=== PATIENT | male | born 1985 | race Caucasian/White ===

== ENCOUNTER 2018-07-30 11:51 | Observation (INO) | payer BC ==
[~2018-07-30 11:51] MED LIST: CEFAZOLIN 1 GM INJ; DESFLURANE 15 MIN
[2018-07-30] MEDS: LACTATED RINGER'S 1,000 ML IV (12:58)
[2018-07-30] MEDS ORDERED: MIDAZOLAM 1 MG/ML 2 ML INJ (14:29)
[2018-07-30] MEDS ORDERED: SUCCINYLCHOLINE CHLORIDE 100 MG/5 ML SYG IV (14:29)
[2018-07-30] MEDS ORDERED: PROPOFOL 20 ML ×2 (14:29→16:05)
[2018-07-30] MEDS ORDERED: FENTAnyl 50 MCG/ML VIAL (14:29)
[2018-07-30] MEDS ORDERED: LIDOCAINE 2% (SDV) 5 ML INJ (14:29)
[2018-07-30] MEDS ORDERED: ROCURONIUM 50 MG INJ (14:29)
[2018-07-30] MEDS ORDERED: DEXAMETHASONE 4 MG/ML 5 ML INJ (14:31)
[2018-07-30] MEDS ORDERED: DIPHENHYDRAMINE 50 MG INJ IV ×2 (15:00→18:00)
[2018-07-30] MEDS ORDERED: ACETAMINOPHEN 325 MG TAB PO (15:00)
[2018-07-30] MEDS ORDERED: CEPASTAT LOZENGE MT (15:00)
[2018-07-30] MEDS ORDERED: NALOXONE (0.4 MG/ML) INJ IV (15:00)
[2018-07-30] MEDS ORDERED: CYCLOBENZAPRINE 10 MG TAB PO (15:00)
[2018-07-30] MEDS ORDERED: HYDROCODONE/APAP (10/325) TAB PO (15:00)
[2018-07-30] MEDS ORDERED: AL HYDROX/MG HYDROX/SIMETH 30 ML CUP PO (15:00)
[2018-07-30] MEDS ORDERED: BISACODYL 10 MG SUPP PR (15:00)
[2018-07-30] MEDS ORDERED: DIPHENHYDRAMINE 25 MG CAP PO (15:00)
[2018-07-30] MEDS ORDERED: HYDROmorphONE 0.5 MG/0.5 ML SYG IV (15:00)
[2018-07-30] MEDS ORDERED: ONDANSETRON 4 MG INJ IV (15:00)
[2018-07-30] MEDS: CEFAZOLIN 1 GM/50 ML (PMX) 50 ML IVPB (15:45)
[2018-07-30] MEDS ORDERED: HYDROmorphONE 2 MG/ML SYG (16:07)
[2018-07-30] MEDS ORDERED: ONDANSETRON 4 MG INJ (16:08)
[2018-07-30] MEDS ORDERED: METOCLOPRAMIDE 10 MG INJ (16:08)
[2018-07-30] MEDS ORDERED: METOPROLOL 5 MG INJ (16:10)
[2018-07-30] MEDS: BUPIVACAINE 0.25%/EPI (SDV) 30 ML INJ (16:35)
[2018-07-30] MEDS: CA CHLORIDE (GM) 10% 10 ML INJ (16:36)
[2018-07-30] MEDS: SURGIFOAM POWDER 1 GM KIT (16:36)
[2018-07-30] MEDS: THROMBIN (BOVINE) 5,000 UNIT VIAL TP (16:37)
[2018-07-30] MEDS: HEPARIN 1000 UNITS/ML 10 ML INJ (16:37)
[2018-07-30] MEDS: POLYMYXIN/BACITRACIN 1L IRRIG (16:37)
[2018-07-30] MEDS ORDERED: NEOSTIGMINE 3 MG/3 ML SYRINGE (17:09)
[2018-07-30] MEDS ORDERED: GLYCOPYRROLATE 0.4 MG INJ (17:09)
[2018-07-30] MEDS: BUPIVACAINE 0.25% (MPF) 30 ML INJ (17:43)
[2018-07-30] MEDS ORDERED: HYDROmorphONE 1 MG/5 ML IV SYRINGE IV (18:00)
[2018-07-30] MEDS ORDERED: FENTAnyl 50 MCG/ML VIAL IV ×2 (18:00)
[2018-07-30] MEDS ORDERED: LEVALBUTEROL (NEB) 1.25 MG/0.5 ML AMP HHN (18:00)
[2018-07-30] MEDS: HYDROmorphONE 1 MG/5 ML IV SYRINGE IV (18:02)
[2018-07-30] MEDS: ONDANSETRON 4 MG INJ IV (18:02)
[2018-07-30] MEDS: D5W-0.45 NACL + KCL 20 MEQ 1,000 ML IV (19:47)
[2018-07-30] MEDS: DOCUSATE SODIUM 100 MG CAP PO (21:35)
[2018-07-31] MEDS: HYDROCODONE/APAP (10/325) TAB PO ×3 (00:05→13:39)
[2018-07-31] MEDS: CEFAZOLIN 1 GM/50 ML (PMX) 50 ML IVPB ×2 (00:06→08:01)
[2018-07-31] MEDS: D5W-0.45 NACL + KCL 20 MEQ 1,000 ML IV ×2 (00:59→05:59)
[2018-07-31 05:06] LABS: ADD MAN DIFF? NO
[2018-07-31 05:15] LABS: WHITE BLOOD COUNT 12.3 10^3/ul (4.8-10.8)
[2018-07-31 05:15] LABS: BASOPHILS % 0.1 % (0.0-2.0); HEMATOCRIT 39.3 % (42.0-52.0); HEMOGLOBIN 13.9 g/dl (14.0-18.0); LYMPHOCYTES # 0.6 10^3/ul (0.8-2.9); MEAN CORPUSCULAR HEMOGLOBIN 33.7 pg (29.0-33.0); MEAN CORPUSCULAR HGB CONC 35.4 g/dl (32.0-37.0); MEAN CORPUSCULAR VOLUME 95.4 fl (82.0-101.0); MEAN PLATELET VOLUME 9.3 fl (7.4-10.4); MONOCYTE # 0.8 10^3/ul (0.3-0.9); MONOCYTES % 6.9 % (0.0-11.0); NEUTROPHIL # 10.7 10^3/ul (1.6-7.5); NEUTROPHILS % 87.1 % (39.0-77.0); PLATELET COUNT 213 10^3/UL (140-415); RED BLOOD COUNT 4.12 10^6/ul (4.70-6.10); RED CELL DISTRIBUTION WIDTH 11.7 % (11.5-14.5)
[2018-07-31 05:29] LABS: ANION GAP 8 (5-13); BLOOD UREA NITROGEN 8 mg/dl (7-20); CALCIUM 9.6 mg/dl (8.4-10.2); CARBON DIOXIDE 26 mmol/L (21-31); CHLORIDE 106 mmol/L (97-110); CREATININE 0.74 mg/dl (0.61-1.24); Estimated GFR > 60 mL/min (>60); GLUCOSE 135 mg/dl (70-220); MAGNESIUM 1.9 mg/dl (1.7-2.5); POTASSIUM 4.1 mmol/L (3.5-5.1); SODIUM 140 mmol/L (135-144)
[2018-07-31] MEDS: DOCUSATE SODIUM 100 MG CAP PO (08:01)
[2018-07-31 09:21] LABS: ALANINE AMINOTRANSFERASE 48 IU/L (13-69); ALKALINE PHOSPHATASE 43 IU/L (42-121); ASPARTATE AMINO TRANSFERASE 38 IU/L (15-46); BILIRUBIN,INDIRECT 0.7 mg/dl (0-1.1); BILIRUBIN,TOTAL 0.7 mg/dl (0.2-1.3); TOTAL PROTEIN 6.5 g/dl (6.1-8.1)
[2018-07-31] MEDS: LACTATED RINGER'S 1,000 ML IV (13:00)
== END 2018-07-31 14:50 | disposition home or self-care (01) ==
LOC: SDS 11:51 → REC 15:01 → MS1 18:34
DX: M51.16 Intervertebral disc disorders with radiculopathy, lumbar region (principal)
CPT/HCPCS: 63030; 72020; 80048; 80076; 83735; 85025; 86999; 88304; 97116; 97161